=== PATIENT | female | born 1950 | race African-American/Black ===

== ENCOUNTER 2017-04-11 18:30 | Inpatient (IN) | payer MEDICARE ==
[~2017-04-11] VITALS: Ht 160 cm; Wt 81.2 kg
[~2017-04-11 18:30] MED LIST: AMLO5TAB4 PO; ASPI-1159 PO; ATOR20TA PO; CHOL100022 PO; CLOP75TA16 PO; DOCU250C69 PO; DULO60CA44 PO; FENO135C4 PO; FERR325T23 PO; FOLI-43 PO; HYDR100T26 PO; LABE100T PO; LANTANOPROST EACHEYE; LORA10TA7 PO; LYR25 PO; MIRT15TA6 PO; OMEP20CA10 PO; PHEN300C2 PO; SITA100T11 PO; VIC PO; WHEA98PO PO
[2017-04-11 20:43] LABS: BASOPHILS % 0.9 % (0.0-2.0); EOSINOPHILS % 2.9 % (0.0-5.0); MEAN CORPUSCULAR HEMOGLOBIN 26.3 pg (28.0-32.0); MEAN CORPUSCULAR VOLUME 81.2 fL (81.0-99.0); MONOCYTES % 12.1 % (2.0-8.0); NEUTROPHILS % 67.1 % (40.0-76.0); PLATELET 317 x1000/uL (130-400); RED BLOOD CELL COUNT 2.31 mill/uL (4.2-5.4); RED CELL DISTRIBUTION WIDTH 13.6 % (11.6-14.6)
[2017-04-11 20:45] LABS: HEMATOCRIT. 18.7 % (36.0-48.0); HEMOGLOBIN. 6.1 g/dL (12.0-16.0)
[2017-04-11 20:55] LABS: CARBON DIOXIDE 20 mEq/L (21-32); CHLORIDE 113 mEq/L (98-107)
[2017-04-11 22:59] LABS: INR 1.2; PROTHROMBIN TIME 12.6 sec (9.4-11.6)
[2017-04-12] VITALS (10 sets, daily range): BP systolic 129–172; BP diastolic 46–70
[2017-04-12] MEDS ORDERED: DEXTROSE 50% WATER 50ML SYRINGE IV PRN (04:45)
[2017-04-12] MEDS ORDERED: OMEPRAZOLE 20MG CAPSULE EXTENDED RELEASE PO SCH (07:20)
[2017-04-12] MEDS: BLOOD SUGAR DIAGNOSTIC STRIP TEST SCH ×4 (07:20→21:02)
[2017-04-12] MEDS: INSULIN LISPRO 100 UNITS/ML SUBCUT SCH ×4 (07:50→21:00)
[2017-04-12] MEDS ORDERED: OMEPRAZOLE 20MG CAPSULE EXTENDED RELEASE PO ONE (08:45)
[2017-04-12] MEDS ORDERED: AMLODIPINE 5MG TABLET PO SCH (09:00)
[2017-04-12] MEDS: FERROUS SULFATE 325MG TABLET PO SCH (09:45)
[2017-04-12] MEDS: LORATADINE 10MG TABLET PO SCH (09:45)
[2017-04-12] MEDS: MIRTAZAPINE 15MG TABLET PO SCH (09:45)
[2017-04-12] MEDS: DOCUSATE SODIUM 250MG CAPSULE PO SCH (09:45)
[2017-04-12] MEDS: DULOXETINE HCL 60MG DR CAPSULE PO SCH (09:45)
[2017-04-12] MEDS: FOLIC ACID 1MG TABLET PO SCH (09:45)
[2017-04-12] MEDS: FENOFIBRATE NANOCRYSTALLIZED 145MG TABLET PO SCH (09:45)
[2017-04-12] MEDS: AMLODIPINE 5MG TABLET PO SCH ×2 (09:47→21:02)
[2017-04-12] MEDS: CHOLECALCIFEROL (D3) 1000 UNIT TABLET PO SCH (09:47)
[2017-04-12] MEDS: HYDRALAZINE HCL 100MG TABLET PO SCH ×3 (11:01→21:02)
[2017-04-12] MEDS: PHENYTOIN SODIUM EXTENDED 100MG CAPSULE PO SCH ×2 (13:31→21:02)
[2017-04-12] MEDS: SODIUM CHLORIDE 0.45% 1,000 ML IV SCH ×2 (14:56→17:50)
[2017-04-12 16:51] LABS: BASOPHILS % 0.7 % (0.0-2.0); EOSINOPHILS % 3.1 % (0.0-5.0); HEMATOCRIT. 24.2 % (36.0-48.0); HEMOGLOBIN. 7.7 g/dL (12.0-16.0); LYMPHOCYTES % 15.5 % (20.0-50.0); MEAN CORPUSCULAR HEMOGLOBIN 26.8 pg (28.0-32.0); MEAN CORPUSCULAR VOLUME 83.9 fL (81.0-99.0); MONOCYTES % 11.3 % (2.0-8.0); NEUTROPHILS % 69.4 % (40.0-76.0); PLATELET 318 x1000/uL (130-400); RED BLOOD CELL COUNT 2.89 mill/uL (4.2-5.4)
[2017-04-12] MEDS: ATORVASTATIN CALCIUM 20MG TABLET PO SCH (21:02)
[2017-04-13] VITALS (31 sets, daily range): BP systolic 63–227; BP diastolic 24–95
[2017-04-13] MEDS: SODIUM CHLORIDE 0.45% 1,000 ML IV SCH (00:36)
[2017-04-13 02:36] LABS: CLARITY URINE CLEAR (CLEAR); COLOR URINE YELLOW (YELLOW); KETONES URINE NEGATIVE (NEGATIVE); LEUKOCYTE ESTERASE URINE NEGATIVE (NEGATIVE); NITRITE URINE NEGATIVE (NEGATIVE); OCCULT BLOOD URINE NEGATIVE (NEGATIVE); PROTEIN URINE 1+ (NEGATIVE); SPECIFIC GRAVITY URINE 1.013 (1.005-1.030); UROBILINOGEN URINE 0.2 E.U./dL (0.2-1.0)
[2017-04-13] MEDS: PHENYTOIN SODIUM EXTENDED 100MG CAPSULE PO SCH ×3 (05:04→21:41)
[2017-04-13] MEDS: HYDRALAZINE HCL 100MG TABLET PO SCH ×3 (05:05→21:32)
[2017-04-13] MEDS: BLOOD SUGAR DIAGNOSTIC STRIP TEST SCH ×3 (06:28→17:50)
[2017-04-13] MEDS ORDERED: OMEPRAZOLE 20MG CAPSULE EXTENDED RELEASE PO SCH (07:20)
[2017-04-13 07:42] LABS: BASOPHILS % 0.5 % (0.0-2.0); EOSINOPHILS % 2.3 % (0.0-5.0); HEMATOCRIT. 22.4 % (36.0-48.0); HEMOGLOBIN. 7.4 g/dL (12.0-16.0); LYMPHOCYTES % 12.6 % (20.0-50.0); MEAN CORPUSCULAR HEMOGLOBIN 26.8 pg (28.0-32.0); MEAN CORPUSCULAR VOLUME 81.2 fL (81.0-99.0); MEAN PLATELET VOLUME 9.1 fl (7.4-10.4); MONOCYTES % 10.1 % (2.0-8.0); NEUTROPHILS % 74.5 % (40.0-76.0); PLATELET 341 x1000/uL (130-400); RED BLOOD CELL COUNT 2.76 mill/uL (4.2-5.4); RED CELL DISTRIBUTION WIDTH 13.9 % (11.6-14.6)
[2017-04-13] MEDS: INSULIN LISPRO 100 UNITS/ML SUBCUT SCH ×4 (07:50→23:23)
[2017-04-13] MEDS: FERROUS SULFATE 325MG TABLET PO SCH (08:51)
[2017-04-13] MEDS: CHOLECALCIFEROL (D3) 1000 UNIT TABLET PO SCH (08:52)
[2017-04-13] MEDS: FOLIC ACID 1MG TABLET PO SCH (08:52)
[2017-04-13] MEDS: DOCUSATE SODIUM 250MG CAPSULE PO SCH (08:52)
[2017-04-13] MEDS: AMLODIPINE 5MG TABLET PO SCH ×2 (08:52→21:32)
[2017-04-13] MEDS: FENOFIBRATE NANOCRYSTALLIZED 145MG TABLET PO SCH (08:53)
[2017-04-13] MEDS: DULOXETINE HCL 60MG DR CAPSULE PO SCH (08:53)
[2017-04-13] MEDS: LORATADINE 10MG TABLET PO SCH (08:53)
[2017-04-13] MEDS: MIRTAZAPINE 15MG TABLET PO SCH (08:56)
[2017-04-13] MEDS ORDERED: NA PHOS,M-B/NA PHOS,DI-BA ENEMA 118ML PR SCH (10:45)
[2017-04-13] MEDS ORDERED: SORBITOL 70% SOLN 30ML PO SCH (10:45)
[2017-04-13] MEDS: PHENYTOIN SODIUM 1,000 MG in SODIUM CHLORIDE 0.9% 100 ML IV SCH ×3 (11:00→13:05)
[2017-04-13 14:50] LABS: CLARITY URINE CLEAR (CLEAR); COLOR URINE YELLOW (YELLOW); KETONES URINE NEGATIVE (NEGATIVE); LEUKOCYTE ESTERASE URINE NEGATIVE (NEGATIVE); NITRITE URINE NEGATIVE (NEGATIVE); OCCULT BLOOD URINE 2+ (NEGATIVE); PROTEIN URINE 1+ (NEGATIVE); SPECIFIC GRAVITY URINE 1.014 (1.005-1.030); UROBILINOGEN URINE 0.2 E.U./dL (0.2-1.0)
[2017-04-13] MEDS ORDERED: SUCCINYLCHOLINE CHLORIDE 200MG/10ML VIAL IV ONE (16:00)
[2017-04-13] MEDS ORDERED: FUROSEMIDE 40MG/4ML VIAL IVP NR (16:00)
[2017-04-13] MEDS ORDERED: ETOMIDATE 2MG/ML 10ML VIAL IV ONE (16:00)
[2017-04-13] MEDS ORDERED: LABETALOL 5MG/ML SYR 20 MG/4 ML SYRINGE IV NR (16:45)
[2017-04-13 17:03] LABS: BG BASE EXCESS -12.5 mmol/L (-2.0-2.0); BG CARBOXYHEMOGLOBIN 0.2 % (0.5-1.5); BG DEOXYHEMOGLOBIN 0.5 % (0.0-5.0); BG HCO3 ACT 16.3 mmol/L (22.0-26.0); BG METHEMOGLOBIN 0.6 % (0.0-1.5); BG OXYGEN SATURATION 99.5 % (92.0-98.5); BG OXYHEMOGLOBIN 98.7 % (94.0-97.0); BG PCO2 49.5 mmHg (35.0-45.0); BG PH 7.136 (7.350-7.450); BG PO2 396.4 mmHg (75.0-100.0); BG SAMPLE SITE RIGHT RADIAL; BG TIDAL VOLUME(mL) 500 mL; BG TOTAL HEMOGLOBIN 11.7 g/dL (12.0-18.0); BG VENT MODE VENT - A/C; BG VENT RATE 16 set
[2017-04-13] MEDS: PROPOFOL 10MG/ML 100ML 100 ML IV PRN ×2 (17:11→21:30)
[2017-04-13 20:18] LABS: HEMATOCRIT. 24.8 % (36.0-48.0); HEMOGLOBIN. 7.9 g/dL (12.0-16.0); MEAN CORPUSCULAR HEMOGLOBIN 26.6 pg (28.0-32.0); MEAN CORPUSCULAR VOLUME 83.1 fL (81.0-99.0); MEAN PLATELET VOLUME 8.6 fl (7.4-10.4); PLATELET 363 x1000/uL (130-400); RED BLOOD CELL COUNT 2.98 mill/uL (4.2-5.4); RED CELL DISTRIBUTION WIDTH 13.9 % (11.6-14.6)
[2017-04-13 20:51] LABS: ATYPICAL LYMPHOCYTES 1; PLATELET ESTIMATE NORMAL
[2017-04-13 20:53] LABS: TROPONIN I 0.47 ng/mL (0.00-0.04)
[2017-04-13 21:05] LABS: BG BASE EXCESS -9.9 mmol/L (-2.0-2.0); BG CARBOXYHEMOGLOBIN 0.2 % (0.5-1.5); BG DEOXYHEMOGLOBIN 12.2 % (0.0-5.0); BG FRACTION INSPIRED OXYGEN 65; BG HCO3 ACT 16.2 mmol/L (22.0-26.0); BG METHEMOGLOBIN 0.5 % (0.0-1.5); BG OXYGEN SATURATION 87.7 % (92.0-98.5); BG OXYHEMOGLOBIN 87.1 % (94.0-97.0); BG PCO2 36.2 mmHg (35.0-45.0); BG PH 7.269 (7.350-7.450); BG PO2 60.3 mmHg (75.0-100.0); BG SAMPLE SITE RIGHT BRACHIAL; BG TIDAL VOLUME(mL) 500 mL; BG TOTAL HEMOGLOBIN 8.8 g/dL (12.0-18.0); BG VENT MODE VENT - A/C; BG VENT RATE 22 set
[2017-04-13] MEDS: ATORVASTATIN CALCIUM 20MG TABLET PO SCH (21:32)
[2017-04-13] MEDS ORDERED: SODIUM BICARBONATE 8.4% 1 MEQ/ML 50ML SYR IV NR (22:45)
[2017-04-14] VITALS (86 sets, daily range): BP systolic 118–196; BP diastolic 51–106
[2017-04-14 00:50] LABS: BG BASE EXCESS -5.6 mmol/L (-2.0-2.0); BG CARBOXYHEMOGLOBIN 0.1 % (0.5-1.5); BG FRACTION INSPIRED OXYGEN 75; BG HCO3 ACT 18.5 mmol/L (22.0-26.0); BG METHEMOGLOBIN 0.3 % (0.0-1.5); BG OXYHEMOGLOBIN 98.6 % (94.0-97.0); BG PCO2 31.5 mmHg (35.0-45.0); BG PH 7.387 (7.350-7.450); BG PO2 172.3 mmHg (75.0-100.0); BG SAMPLE SITE LEFT BRACHIAL; BG TIDAL VOLUME(mL) 550 mL; BG TOTAL HEMOGLOBIN 10.9 g/dL (12.0-18.0); BG VENT MODE VENT - A/C; BG VENT RATE 24 set
[2017-04-14] MEDS: PROPOFOL 10MG/ML 100ML 100 ML IV PRN ×8 (02:13→23:15)
[2017-04-14 04:13] LABS: HEMATOCRIT. 23.7 % (36.0-48.0); HEMOGLOBIN. 7.7 g/dL (12.0-16.0); MEAN CORPUSCULAR HEMOGLOBIN 26.2 pg (28.0-32.0); MEAN CORPUSCULAR VOLUME 80.3 fL (81.0-99.0); MEAN PLATELET VOLUME 8.7 fl (7.4-10.4); PLATELET 319 x1000/uL (130-400); RED BLOOD CELL COUNT 2.95 mill/uL (4.2-5.4); RED CELL DISTRIBUTION WIDTH 13.6 % (11.6-14.6)
[2017-04-14] MEDS: PHENYTOIN SODIUM EXTENDED 100MG CAPSULE PO SCH ×3 (05:39→22:06)
[2017-04-14 05:40] LABS: TROPONIN I 0.75 ng/mL (0.00-0.04)
[2017-04-14] MEDS: NICARDIPINE 100 MG in SODIUM CHLORIDE 0.9% 60 ML IV PRN ×2 (05:42→17:32)
[2017-04-14] MEDS: HYDRALAZINE HCL 100MG TABLET PO SCH (06:00)
[2017-04-14] MEDS: INSULIN LISPRO 100 UNITS/ML SUBCUT SCH ×3 (06:00→18:00)
[2017-04-14] MEDS: BLOOD SUGAR DIAGNOSTIC STRIP TEST SCH ×4 (06:05→18:00)
[2017-04-14] MEDS ORDERED: SODIUM BICARBONATE 4% (2.4MEQ) 5ML VIAL IV ONE (08:00)
[2017-04-14] MEDS ORDERED: LIDOCAINE HCL 1% 20ML VIAL (Pyxis) INJ ONE (08:00)
[2017-04-14] MEDS ORDERED: FUROSEMIDE 40MG/4ML VIAL IVP SCH (08:30)
[2017-04-14 08:34] LABS: BG BASE EXCESS -7.5 mmol/L (-2.0-2.0); BG CARBOXYHEMOGLOBIN 0.1 % (0.5-1.5); BG DEOXYHEMOGLOBIN 0.9 % (0.0-5.0); BG FRACTION INSPIRED OXYGEN 75; BG HCO3 ACT 16.2 mmol/L (22.0-26.0); BG METHEMOGLOBIN 0.7 % (0.0-1.5); BG OXYGEN SATURATION 99.1 % (92.0-98.5); BG OXYHEMOGLOBIN 98.3 % (94.0-97.0); BG PCO2 26.1 mmHg (35.0-45.0); BG PO2 177.5 mmHg (75.0-100.0); BG SAMPLE SITE RIGHT RADIAL; BG TIDAL VOLUME(mL) 550 mL; BG TOTAL HEMOGLOBIN 7.7 g/dL (12.0-18.0); BG VENT MODE VENT - A/C; BG VENT RATE 24 set
[2017-04-14] MEDS ORDERED: VANCOMYCIN 1 G PREMIX 200 ML IV SCH (09:00)
[2017-04-14] MEDS: PIPERACILLIN/TAZ 3.375G PREMIX 50 ML IV SCH ×2 (09:32→16:53)
[2017-04-14 10:10] LABS: PLATELET ESTIMATE NORMAL
[2017-04-14] MEDS: ACETAMINOPHEN 325MG TABLET PO PRN (10:22)
[2017-04-14] MEDS: FOLIC ACID 1MG TABLET PO SCH (10:23)
[2017-04-14] MEDS: FERROUS SULFATE 325MG TABLET PO SCH (10:23)
[2017-04-14] MEDS: AMLODIPINE 5MG TABLET PO SCH ×2 (10:23→22:02)
[2017-04-14] MEDS: DOCUSATE SODIUM 250MG CAPSULE PO SCH (10:23)
[2017-04-14] MEDS: LORATADINE 10MG TABLET PO SCH (10:23)
[2017-04-14] MEDS: MIRTAZAPINE 15MG TABLET PO SCH (10:24)
[2017-04-14] MEDS: DULOXETINE HCL 60MG DR CAPSULE PO SCH (10:24)
[2017-04-14] MEDS: FENOFIBRATE NANOCRYSTALLIZED 145MG TABLET PO SCH (10:24)
[2017-04-14] MEDS: CHOLECALCIFEROL (D3) 1000 UNIT TABLET PO SCH (10:24)
[2017-04-14] MEDS: FAMOTIDINE 20MG/2ML VIAL IV SCH (11:11)
[2017-04-14] MEDS: NITROGLYCERIN OINT 1GM/INCH UDPKT TD SCH ×2 (11:58→22:08)
[2017-04-14] MEDS ORDERED: VANCOMYCIN 500 MG PREMIX 100 ML IV SCH (13:00)
[2017-04-14] MEDS: IPRATROPIUM/ALBUTEROL 0.5-3(2.5)MG/3ML NEB HHN PRN ×2 (13:16→16:44)
[2017-04-14] MEDS: HYDRALAZINE HCL 50MG TABLET GT SCH (14:23)
[2017-04-14] MEDS: LABETALOL HCL 200MG TABLET NG SCH (22:01)
[2017-04-14] MEDS: ATORVASTATIN CALCIUM 20MG TABLET PO SCH (22:02)
[2017-04-15] VITALS (79 sets, daily range): BP systolic 121–170; BP diastolic 47–108
[2017-04-15] MEDS: HYDRALAZINE HCL 50MG TABLET GT SCH ×4 (00:01→22:38)
[2017-04-15] MEDS: PIPERACILLIN/TAZ 3.375G PREMIX 50 ML IV SCH ×3 (01:47→17:44)
[2017-04-15] MEDS: NICARDIPINE 100 MG in SODIUM CHLORIDE 0.9% 60 ML IV PRN (01:54)
[2017-04-15] MEDS: PROPOFOL 10MG/ML 100ML 100 ML IV PRN ×2 (03:34→07:06)
[2017-04-15] MEDS: INSULIN LISPRO 100 UNITS/ML SUBCUT SCH ×2 (06:00)
[2017-04-15 06:03] LABS: HEMOGLOBIN. 7.8 g/dL (12.0-16.0); MEAN CORPUSCULAR HEMOGLOBIN 27.1 pg (28.0-32.0); MEAN CORPUSCULAR VOLUME 82.9 fL (81.0-99.0); PLATELET 249 x1000/uL (130-400); RED CELL DISTRIBUTION WIDTH 14.4 % (11.6-14.6)
[2017-04-15] MEDS: PHENYTOIN SODIUM EXTENDED 100MG CAPSULE PO SCH ×3 (06:18→22:38)
[2017-04-15] MEDS: NITROGLYCERIN OINT 1GM/INCH UDPKT TD SCH ×3 (06:50→22:39)
[2017-04-15 07:22] LABS: BG BASE EXCESS -7.4 mmol/L (-2.0-2.0); BG CARBOXYHEMOGLOBIN 0.3 % (0.5-1.5); BG DEOXYHEMOGLOBIN 2.2 % (0.0-5.0); BG HCO3 ACT 17.5 mmol/L (22.0-26.0); BG METHEMOGLOBIN 0.4 % (0.0-1.5); BG OXYGEN SATURATION 97.8 % (92.0-98.5); BG OXYHEMOGLOBIN 97.1 % (94.0-97.0); BG PCO2 32.8 mmHg (35.0-45.0); BG PH 7.346 (7.350-7.450); BG PO2 114.9 mmHg (75.0-100.0); BG SAMPLE SITE RIGHT BRACHIAL; BG TIDAL VOLUME(mL) 550 mL; BG TOTAL HEMOGLOBIN 8.3 g/dL (12.0-18.0); BG VENT MODE VENT - A/C; BG VENT RATE 20 set
[2017-04-15 09:00] LABS: TROPONIN I 0.24 ng/mL (0.00-0.04)
[2017-04-15] MEDS ORDERED: CLOPIDOGREL 75MG TABLET NG SCH (09:00)
[2017-04-15] MEDS: IPRATROPIUM/ALBUTEROL 0.5-3(2.5)MG/3ML NEB HHN PRN (09:16)
[2017-04-15] MEDS: DOCUSATE SODIUM 250MG CAPSULE PO SCH (10:03)
[2017-04-15] MEDS: FAMOTIDINE 20MG/2ML VIAL IV SCH (10:03)
[2017-04-15] MEDS: FENOFIBRATE NANOCRYSTALLIZED 145MG TABLET PO SCH (10:04)
[2017-04-15] MEDS: MIRTAZAPINE 15MG TABLET PO SCH (10:04)
[2017-04-15] MEDS: LABETALOL HCL 200MG TABLET NG SCH ×2 (10:04→20:57)
[2017-04-15] MEDS: DULOXETINE HCL 60MG DR CAPSULE PO SCH (10:05)
[2017-04-15] MEDS: LORATADINE 10MG TABLET PO SCH (10:05)
[2017-04-15] MEDS: CHOLECALCIFEROL (D3) 1000 UNIT TABLET PO SCH (10:05)
[2017-04-15] MEDS: FOLIC ACID 1MG TABLET PO SCH (10:05)
[2017-04-15] MEDS: AMLODIPINE 5MG TABLET PO SCH ×2 (10:05→20:58)
[2017-04-15] MEDS: FERROUS SULFATE 325MG TABLET PO SCH (10:05)
[2017-04-15] MEDS ORDERED: VANCOMYCIN 1 G PREMIX 200 ML IV SCH (12:00)
[2017-04-15] MEDS: BLOOD SUGAR DIAGNOSTIC STRIP TEST SCH ×4 (12:41→23:57)
[2017-04-15] MEDS: FENTANYL CITRATE/PF 500 MCG in SODIUM CHLORIDE 0.9% 40 ML IV PRN (13:28)
[2017-04-15] MEDS: MIDAZOLAM HCL 50 MG in DEXTROSE 5% WATER 40 ML IV PRN ×2 (13:30→21:51)
[2017-04-15 13:53] LABS: PLATELET ESTIMATE NORMAL
[2017-04-15 19:12] LABS: ANTI-NUCLEAR ANTIBODIES DIRECT Positive (Negative)
[2017-04-15] MEDS: ATORVASTATIN CALCIUM 20MG TABLET PO SCH (20:57)
[2017-04-15] MEDS: ACETAMINOPHEN 325MG TABLET PO PRN (20:58)
[2017-04-16] VITALS (97 sets, daily range): BP systolic 123–192; BP diastolic 53–131
[2017-04-16] MEDS: PIPERACILLIN/TAZ 3.375G PREMIX 50 ML IV SCH ×3 (01:30→16:36)
[2017-04-16] MEDS: FENTANYL CITRATE/PF 500 MCG in SODIUM CHLORIDE 0.9% 40 ML IV PRN ×2 (01:36→18:29)
[2017-04-16] MEDS: NICARDIPINE 100 MG in SODIUM CHLORIDE 0.9% 60 ML IV PRN (02:13)
[2017-04-16] MEDS: MIDAZOLAM HCL 50 MG in DEXTROSE 5% WATER 40 ML IV PRN ×4 (03:11→23:31)
[2017-04-16 05:39] LABS: HEMOGLOBIN. 7.9 g/dL (12.0-16.0); MEAN CORPUSCULAR HEMOGLOBIN 27.2 pg (28.0-32.0); MEAN CORPUSCULAR VOLUME 82.6 fL (81.0-99.0); MEAN PLATELET VOLUME 9.2 fl (7.4-10.4); PLATELET 224 x1000/uL (130-400); RED BLOOD CELL COUNT 2.91 mill/uL (4.2-5.4); RED CELL DISTRIBUTION WIDTH 14.4 % (11.6-14.6)
[2017-04-16 06:21] LABS: COMPLEMENT C3 56 mg/dL (82-167)
[2017-04-16] MEDS: PHENYTOIN SODIUM EXTENDED 100MG CAPSULE PO SCH (06:27)
[2017-04-16] MEDS: BLOOD SUGAR DIAGNOSTIC STRIP TEST SCH ×3 (06:28→17:41)
[2017-04-16] MEDS: NITROGLYCERIN OINT 1GM/INCH UDPKT TD SCH ×3 (06:28→23:05)
[2017-04-16] MEDS: HYDRALAZINE HCL 50MG TABLET GT SCH (06:28)
[2017-04-16] MEDS: FOLIC ACID 1MG TABLET PO SCH (08:52)
[2017-04-16] MEDS: FAMOTIDINE 20MG/2ML VIAL IV SCH (08:52)
[2017-04-16] MEDS: MIRTAZAPINE 15MG TABLET PO SCH (08:52)
[2017-04-16] MEDS: FENOFIBRATE NANOCRYSTALLIZED 145MG TABLET PO SCH (08:52)
[2017-04-16] MEDS: FERROUS SULFATE 325MG TABLET PO SCH (08:53)
[2017-04-16] MEDS: AMLODIPINE 5MG TABLET PO SCH ×2 (08:53→20:31)
[2017-04-16] MEDS: LORATADINE 10MG TABLET PO SCH (08:53)
[2017-04-16] MEDS: DULOXETINE HCL 60MG DR CAPSULE PO SCH (08:53)
[2017-04-16] MEDS: LABETALOL HCL 200MG TABLET NG SCH ×2 (08:53→20:31)
[2017-04-16] MEDS: CHOLECALCIFEROL (D3) 1000 UNIT TABLET PO SCH (08:53)
[2017-04-16 08:57] LABS: BG BASE EXCESS -8.6 mmol/L (-2.0-2.0); BG CARBOXYHEMOGLOBIN 0.1 % (0.5-1.5); BG DEOXYHEMOGLOBIN 1.7 % (0.0-5.0); BG FRACTION INSPIRED OXYGEN 50; BG HCO3 ACT 16.8 mmol/L (22.0-26.0); BG METHEMOGLOBIN 0.2 % (0.0-1.5); BG OXYGEN SATURATION 98.3 % (92.0-98.5); BG PCO2 33.9 mmHg (35.0-45.0); BG PH 7.313 (7.350-7.450); BG SAMPLE SITE RIGHT RADIAL; BG TIDAL VOLUME(mL) 550 mL; BG TOTAL HEMOGLOBIN 8.1 g/dL (12.0-18.0); BG VENT MODE VENT - A/C; BG VENT RATE 20 set
[2017-04-16] MEDS: DOCUSATE SODIUM 250MG CAPSULE PO SCH (09:00)
[2017-04-16] MEDS ORDERED: FUROSEMIDE 40MG/4ML VIAL IVP NR (09:30)
[2017-04-16] MEDS ORDERED: BISACODYL 10MG SUPP PR PRN (09:30)
[2017-04-16 10:33] LABS: PLATELET ESTIMATE NORMAL
[2017-04-16] MEDS: INSULIN LISPRO 100 UNITS/ML SUBCUT SCH ×2 (12:00→17:41)
[2017-04-16] MEDS: ACETAMINOPHEN 325MG TABLET PO PRN (12:54)
[2017-04-16] MEDS: HYDRALAZINE HCL 100MG TABLET GT SCH ×2 (14:04→23:05)
[2017-04-16] MEDS: PHENYTOIN 100 MG/4 ML UDC NG SCH ×2 (14:04→23:05)
[2017-04-16] MEDS ORDERED: NICARDIPINE 50 MG in SODIUM CHLORIDE 0.9% 230 ML IV SCH (16:00)
[2017-04-16] MEDS: ACETYLCYSTEINE 200MG/ML 20% VIAL 4ML INH SCH (16:32)
[2017-04-16] MEDS: IPRATROPIUM/ALBUTEROL 0.5-3(2.5)MG/3ML NEB HHN PRN ×2 (16:33→20:29)
[2017-04-16] MEDS: DEXT 5% IV SCH (16:34)
[2017-04-16] MEDS: NICARDIPINE IV SCH (16:34)
[2017-04-16] MEDS: WATER IV SCH (16:34)
[2017-04-16] MEDS: ATORVASTATIN CALCIUM 20MG TABLET PO SCH (20:31)
[2017-04-17] VITALS (93 sets, daily range): BP systolic 108–169; BP diastolic 40–86
[2017-04-17] MEDS: INSULIN LISPRO 100 UNITS/ML SUBCUT SCH ×4 (00:30→17:30)
[2017-04-17] MEDS: BLOOD SUGAR DIAGNOSTIC STRIP TEST SCH ×4 (00:30→17:30)
[2017-04-17] MEDS: IPRATROPIUM/ALBUTEROL 0.5-3(2.5)MG/3ML NEB HHN PRN ×5 (00:31→15:27)
[2017-04-17] MEDS: ACETYLCYSTEINE 200MG/ML 20% VIAL 4ML INH SCH ×3 (00:32→15:27)
[2017-04-17] MEDS: PIPERACILLIN/TAZ 3.375G PREMIX 50 ML IV SCH ×3 (01:56→17:30)
[2017-04-17] MEDS: FENTANYL CITRATE/PF 500 MCG in SODIUM CHLORIDE 0.9% 40 ML IV PRN (05:39)
[2017-04-17] MEDS: MIDAZOLAM HCL 50 MG in DEXTROSE 5% WATER 40 ML IV PRN (05:39)
[2017-04-17] MEDS: DEXT 5% IV SCH (05:40)
[2017-04-17] MEDS: WATER IV SCH (05:40)
[2017-04-17] MEDS: NICARDIPINE IV SCH (05:40)
[2017-04-17] MEDS: PHENYTOIN 100 MG/4 ML UDC NG SCH ×3 (05:41→21:40)
[2017-04-17] MEDS: NITROGLYCERIN OINT 1GM/INCH UDPKT TD SCH ×3 (05:42→21:40)
[2017-04-17] MEDS: HYDRALAZINE HCL 100MG TABLET GT SCH ×3 (05:42→21:40)
[2017-04-17 05:47] LABS: HEMOGLOBIN. 7.9 g/dL (12.0-16.0); MEAN CORPUSCULAR VOLUME 82.4 fL (81.0-99.0); MEAN PLATELET VOLUME 9.5 fl (7.4-10.4); PLATELET 239 x1000/uL (130-400); RED BLOOD CELL COUNT 2.91 mill/uL (4.2-5.4); RED CELL DISTRIBUTION WIDTH 14.1 % (11.6-14.6)
[2017-04-17] MEDS ORDERED: VANCOMYCIN 1 G PREMIX 200 ML IV PRN (06:00)
[2017-04-17 06:08] LABS: PHOSPHORUS 3.9 mg/dL (2.5-4.9)
[2017-04-17 08:28] LABS: BG BASE EXCESS -6.9 mmol/L (-2.0-2.0); BG CARBOXYHEMOGLOBIN 0.3 % (0.5-1.5); BG DEOXYHEMOGLOBIN 1.3 % (0.0-5.0); BG FRACTION INSPIRED OXYGEN 50; BG HCO3 ACT 18.4 mmol/L (22.0-26.0); BG METHEMOGLOBIN 0.7 % (0.0-1.5); BG OXYGEN SATURATION 98.7 % (92.0-98.5); BG OXYHEMOGLOBIN 97.7 % (94.0-97.0); BG PCO2 35.8 mmHg (35.0-45.0); BG PH 7.329 (7.350-7.450); BG PO2 156.6 mmHg (75.0-100.0); BG SAMPLE SITE RIGHT RADIAL; BG TIDAL VOLUME(mL) 550 mL; BG TOTAL HEMOGLOBIN 9.4 g/dL (12.0-18.0); BG VENT MODE VENT - A/C; BG VENT RATE 20 set
[2017-04-17] MEDS ORDERED: MIDAZOLAM HCL 2 MG/2 ML VIAL IV PRN (09:30)
[2017-04-17] MEDS: CHOLECALCIFEROL (D3) 1000 UNIT TABLET PO SCH (09:41)
[2017-04-17] MEDS: DULOXETINE HCL 60MG DR CAPSULE PO SCH (09:41)
[2017-04-17] MEDS: FERROUS SULFATE 325MG TABLET PO SCH (09:41)
[2017-04-17] MEDS: DOCUSATE SODIUM 250MG CAPSULE PO SCH (09:41)
[2017-04-17] MEDS: FAMOTIDINE 20MG/2ML VIAL IV SCH (09:42)
[2017-04-17] MEDS: AMLODIPINE 5MG TABLET PO SCH ×2 (09:42→20:50)
[2017-04-17] MEDS: MIRTAZAPINE 15MG TABLET PO SCH (09:42)
[2017-04-17] MEDS: FENOFIBRATE NANOCRYSTALLIZED 145MG TABLET PO SCH (09:42)
[2017-04-17] MEDS: LABETALOL HCL 200MG TABLET NG SCH ×2 (09:42→20:49)
[2017-04-17] MEDS: FOLIC ACID 1MG TABLET PO SCH (09:42)
[2017-04-17] MEDS: LORATADINE 10MG TABLET PO SCH (09:43)
[2017-04-17] MEDS ORDERED: POTASSIUM CHLORIDE 20MEQ/PACKET PO NR (11:00)
[2017-04-17] MEDS ORDERED: MAGNESIUM 1 G PREMIX 100 ML IV NR (11:00)
[2017-04-17] MEDS: CITRIC ACID/SODIUM CITRATE SOLN 15ML UDC NG SCH ×2 (11:29→17:30)
[2017-04-17] MEDS: ACETAMINOPHEN 325MG TABLET PO PRN (11:43)
[2017-04-17 12:16] LABS: BG BASE EXCESS -5.2 mmol/L (-2.0-2.0); BG CARBOXYHEMOGLOBIN 0.4 % (0.5-1.5); BG DEOXYHEMOGLOBIN 1.7 % (0.0-5.0); BG FRACTION INSPIRED OXYGEN 40; BG HCO3 ACT 20.1 mmol/L (22.0-26.0); BG METHEMOGLOBIN 0.8 % (0.0-1.5); BG OXYGEN SATURATION 98.3 % (92.0-98.5); BG OXYHEMOGLOBIN 97.1 % (94.0-97.0); BG PCO2 37.8 mmHg (35.0-45.0); BG PH 7.343 (7.350-7.450); BG PO2 141.3 mmHg (75.0-100.0); BG SAMPLE SITE RIGHT RADIAL; BG TIDAL VOLUME(mL) 550 mL; BG TOTAL HEMOGLOBIN 7.7 g/dL (12.0-18.0); BG VENT MODE VENT - A/C; BG VENT RATE 16 set
[2017-04-17] MEDS ORDERED: VANCOMYCIN 1 G PREMIX 200 ML IV SCH (14:00)
[2017-04-17 14:11] LABS: PLATELET ESTIMATE NORMAL
[2017-04-17] MEDS ORDERED: FUROSEMIDE 40MG/4ML VIAL IVP NR (15:00)
[2017-04-17] MEDS: ATORVASTATIN CALCIUM 20MG TABLET PO SCH (20:50)
[2017-04-18] VITALS (97 sets, daily range): BP systolic 121–213; BP diastolic 32–146
[2017-04-18] MEDS: BLOOD SUGAR DIAGNOSTIC STRIP TEST SCH ×4 (00:23→17:39)
[2017-04-18] MEDS: ACETYLCYSTEINE 200MG/ML 20% VIAL 4ML INH SCH ×3 (00:36→15:50)
[2017-04-18] MEDS: IPRATROPIUM/ALBUTEROL 0.5-3(2.5)MG/3ML NEB HHN PRN ×3 (00:37→15:50)
[2017-04-18] MEDS: WATER IV SCH ×3 (00:59→15:38)
[2017-04-18] MEDS: PIPERACILLIN/TAZ 3.375G PREMIX 50 ML IV SCH ×3 (00:59→17:29)
[2017-04-18] MEDS: DEXT 5% IV SCH ×3 (00:59→15:38)
[2017-04-18] MEDS: NICARDIPINE IV SCH ×3 (00:59→15:38)
[2017-04-18 05:29] LABS: HEMATOCRIT. 24.6 % (36.0-48.0); HEMOGLOBIN. 8.2 g/dL (12.0-16.0); MEAN CORPUSCULAR HEMOGLOBIN 27.6 pg (28.0-32.0); MEAN CORPUSCULAR VOLUME 82.4 fL (81.0-99.0); MEAN PLATELET VOLUME 9.3 fl (7.4-10.4); PLATELET 217 x1000/uL (130-400); RED BLOOD CELL COUNT 2.98 mill/uL (4.2-5.4); RED CELL DISTRIBUTION WIDTH 14.4 % (11.6-14.6)
[2017-04-18] MEDS: HYDRALAZINE HCL 100MG TABLET GT SCH ×3 (05:55→22:29)
[2017-04-18] MEDS: NITROGLYCERIN OINT 1GM/INCH UDPKT TD SCH ×3 (05:55→22:31)
[2017-04-18] MEDS: PHENYTOIN 100 MG/4 ML UDC NG SCH ×3 (05:55→22:29)
[2017-04-18 05:56] LABS: PHOSPHORUS 2.7 mg/dL (2.5-4.9)
[2017-04-18] MEDS: INSULIN LISPRO 100 UNITS/ML SUBCUT SCH ×4 (06:00→17:38)
[2017-04-18 08:10] LABS: BG BASE EXCESS -3.5 mmol/L (-2.0-2.0); BG CARBOXYHEMOGLOBIN 0.3 % (0.5-1.5); BG DEOXYHEMOGLOBIN 6.4 % (0.0-5.0); BG METHEMOGLOBIN 0.1 % (0.0-1.5); BG OXYGEN SATURATION 93.6 % (92.0-98.5); BG OXYHEMOGLOBIN 93.2 % (94.0-97.0); BG PCO2 41.8 mmHg (35.0-45.0); BG PO2 72.5 mmHg (75.0-100.0); BG SAMPLE SITE RIGHT RADIAL; BG TIDAL VOLUME(mL) 550 mL; BG TOTAL HEMOGLOBIN 8.9 g/dL (12.0-18.0); BG VENT MODE VENT - A/C; BG VENT RATE 14 set
[2017-04-18] MEDS: FAMOTIDINE 20MG/2ML VIAL IV SCH (08:43)
[2017-04-18] MEDS: FOLIC ACID 1MG TABLET PO SCH (08:44)
[2017-04-18] MEDS: MIRTAZAPINE 15MG TABLET PO SCH (08:44)
[2017-04-18] MEDS: LORATADINE 10MG TABLET PO SCH (08:44)
[2017-04-18] MEDS: FERROUS SULFATE 325MG TABLET PO SCH (08:44)
[2017-04-18] MEDS: DULOXETINE HCL 60MG DR CAPSULE PO SCH (08:44)
[2017-04-18] MEDS: AMLODIPINE 5MG TABLET PO SCH ×2 (08:44→21:10)
[2017-04-18] MEDS: FENOFIBRATE NANOCRYSTALLIZED 145MG TABLET PO SCH (08:44)
[2017-04-18] MEDS: CHOLECALCIFEROL (D3) 1000 UNIT TABLET PO SCH (08:44)
[2017-04-18] MEDS: LABETALOL HCL 200MG TABLET NG SCH ×3 (08:45→22:28)
[2017-04-18] MEDS: DOCUSATE SODIUM 250MG CAPSULE PO SCH (08:45)
[2017-04-18] MEDS: CITRIC ACID/SODIUM CITRATE SOLN 15ML UDC NG SCH ×3 (08:51→17:34)
[2017-04-18] MEDS: LACTOBACILLUS GG CAPSULE PO SCH (10:18)
[2017-04-18 10:45] LABS: PLATELET ESTIMATE NORMAL
[2017-04-18] MEDS: METOCLOPRAMIDE HCL 10MG/2ML VIAL IV SCH ×2 (11:33→17:34)
[2017-04-18] MEDS: DILTIAZEM HCL 30MG TABLET NG SCH ×2 (11:33→17:34)
[2017-04-18] MEDS: CAFFEINE 200MG TABLET NG SCH (11:33)
[2017-04-18] MEDS ORDERED: POTASSIUM CHLORIDE INJ 20 MEQ in DEXT 5% WATER 100 ML IV NR (12:00)
[2017-04-18] MEDS: FUROSEMIDE 40MG/4ML VIAL IVP SCH (17:34)
[2017-04-18] MEDS: ATORVASTATIN CALCIUM 20MG TABLET PO SCH (21:09)
[2017-04-19] VITALS (85 sets, daily range): BP systolic 101–191; BP diastolic 45–109
[2017-04-19] MEDS: METOCLOPRAMIDE HCL 10MG/2ML VIAL IV SCH ×4 (00:01→17:01)
[2017-04-19] MEDS: DILTIAZEM HCL 30MG TABLET NG SCH ×2 (00:01→05:34)
[2017-04-19] MEDS: IPRATROPIUM/ALBUTEROL 0.5-3(2.5)MG/3ML NEB HHN PRN ×4 (00:28→15:43)
[2017-04-19] MEDS: ACETYLCYSTEINE 200MG/ML 20% VIAL 4ML INH SCH ×3 (00:29→15:44)
[2017-04-19] MEDS: PIPERACILLIN/TAZ 3.375G PREMIX 50 ML IV SCH ×3 (02:17→18:04)
[2017-04-19] MEDS: HYDRALAZINE HCL 100MG TABLET GT SCH ×3 (05:34→21:58)
[2017-04-19] MEDS: LABETALOL HCL 200MG TABLET NG SCH (05:34)
[2017-04-19] MEDS: PHENYTOIN 100 MG/4 ML UDC NG SCH ×3 (05:35→21:57)
[2017-04-19] MEDS: BLOOD SUGAR DIAGNOSTIC STRIP TEST SCH ×4 (05:35→18:00)
[2017-04-19] MEDS: INSULIN LISPRO 100 UNITS/ML SUBCUT SCH ×4 (05:53→17:59)
[2017-04-19] MEDS: NITROGLYCERIN OINT 1GM/INCH UDPKT TD SCH ×3 (05:54→21:57)
[2017-04-19 06:10] LABS: HEMATOCRIT. 23.3 % (36.0-48.0); HEMOGLOBIN. 7.8 g/dL (12.0-16.0); MEAN CORPUSCULAR HEMOGLOBIN 27.4 pg (28.0-32.0); MEAN CORPUSCULAR VOLUME 82.5 fL (81.0-99.0); MEAN PLATELET VOLUME 9.6 fl (7.4-10.4); PLATELET 230 x1000/uL (130-400); RED BLOOD CELL COUNT 2.83 mill/uL (4.2-5.4); RED CELL DISTRIBUTION WIDTH 14.5 % (11.6-14.6)
[2017-04-19] MEDS: NICARDIPINE IV SCH ×2 (06:23→14:05)
[2017-04-19] MEDS: WATER IV SCH ×2 (06:23→14:05)
[2017-04-19] MEDS: DEXT 5% IV SCH ×2 (06:23→14:05)
[2017-04-19 06:29] LABS: PHOSPHORUS 2.9 mg/dL (2.5-4.9)
[2017-04-19] MEDS: FUROSEMIDE 40MG/4ML VIAL IVP SCH ×2 (06:54→18:04)
[2017-04-19 08:44] LABS: BG BASE EXCESS -1.5 mmol/L (-2.0-2.0); BG CARBOXYHEMOGLOBIN 0.3 % (0.5-1.5); BG DEOXYHEMOGLOBIN 2.7 % (0.0-5.0); BG FRACTION INSPIRED OXYGEN 30; BG HCO3 ACT 22.4 mmol/L (22.0-26.0); BG METHEMOGLOBIN 0.3 % (0.0-1.5); BG OXYGEN SATURATION 97.3 % (92.0-98.5); BG OXYHEMOGLOBIN 96.7 % (94.0-97.0); BG PCO2 33.9 mmHg (35.0-45.0); BG PH 7.437 (7.350-7.450); BG PO2 91.3 mmHg (75.0-100.0); BG SAMPLE SITE RIGHT RADIAL; BG TIDAL VOLUME(mL) 550 mL; BG TOTAL HEMOGLOBIN 8.4 g/dL (12.0-18.0); BG VENT MODE VENT - A/C; BG VENT RATE 16 set
[2017-04-19] MEDS: DOCUSATE SODIUM 250MG CAPSULE PO SCH (09:00)
[2017-04-19] MEDS: CAFFEINE 200MG TABLET NG SCH (09:47)
[2017-04-19] MEDS: CITRIC ACID/SODIUM CITRATE SOLN 15ML UDC NG SCH ×3 (09:47→18:04)
[2017-04-19] MEDS: LACTOBACILLUS GG CAPSULE PO SCH (09:47)
[2017-04-19] MEDS: FAMOTIDINE 20MG/2ML VIAL IV SCH (09:47)
[2017-04-19] MEDS: LORATADINE 10MG TABLET PO SCH (09:48)
[2017-04-19] MEDS: FENOFIBRATE NANOCRYSTALLIZED 145MG TABLET PO SCH (09:49)
[2017-04-19] MEDS: AMLODIPINE 5MG TABLET PO SCH ×3 (09:49→21:58)
[2017-04-19] MEDS: FOLIC ACID 1MG TABLET PO SCH (09:49)
[2017-04-19] MEDS: CHOLECALCIFEROL (D3) 1000 UNIT TABLET PO SCH (09:49)
[2017-04-19] MEDS: DULOXETINE HCL 60MG DR CAPSULE PO SCH (09:49)
[2017-04-19] MEDS: MIRTAZAPINE 15MG TABLET PO SCH (09:49)
[2017-04-19] MEDS: FERROUS SULFATE 325MG TABLET PO SCH (09:50)
[2017-04-19] MEDS ORDERED: POTASSIUM CHLORIDE 20MEQ TABLET SR PO NR (10:00)
[2017-04-19] MEDS ORDERED: MAGNESIUM 1 G PREMIX 100 ML IV NR (10:00)
[2017-04-19 10:01] LABS: PLATELET ESTIMATE NORMAL
[2017-04-19] MEDS ORDERED: POTASSIUM CHLORIDE INJ 20 MEQ in DEXT 5% WATER 100 ML IV NR (11:30)
[2017-04-19] MEDS: VANCOMYCIN 750 MG PREMIX 150 ML IV SCH (13:27)
[2017-04-19] MEDS: DILTIAZEM HCL 60MG TABLET NG SCH ×2 (13:28→21:57)
[2017-04-19] MEDS: LABETALOL HCL 300MG TABLET NG SCH ×2 (13:28→21:58)
[2017-04-19] MEDS ORDERED: DOCUSATE SODIUM SUGAR FREE 100MG/10ML UDC NG SCH (15:55)
[2017-04-19] MEDS ORDERED: DOCUSATE SODIUM SUGAR FREE 100MG/10ML UDC PO SCH (15:55)
[2017-04-19] MEDS ORDERED: POTASSIUM CHLORIDE INJ 20 MEQ in SODIUM CHLORIDE 0.9% 100 ML IV SCH (18:45)
[2017-04-19] MEDS: ATORVASTATIN CALCIUM 20MG TABLET PO SCH (20:38)
[2017-04-19] MEDS: ACETAMINOPHEN 325MG TABLET PO PRN (22:39)
[2017-04-20] VITALS (93 sets, daily range): BP systolic 124–189; BP diastolic 48–180
[2017-04-20] MEDS: ACETYLCYSTEINE 200MG/ML 20% VIAL 4ML INH SCH ×3 (00:18→15:55)
[2017-04-20] MEDS: IPRATROPIUM/ALBUTEROL 0.5-3(2.5)MG/3ML NEB HHN PRN ×5 (00:18→15:55)
[2017-04-20] MEDS: BLOOD SUGAR DIAGNOSTIC STRIP TEST SCH ×5 (00:38→23:57)
[2017-04-20] MEDS: METOCLOPRAMIDE HCL 10MG/2ML VIAL IV SCH ×2 (00:38→05:10)
[2017-04-20] MEDS: WATER IV SCH ×3 (00:40→21:49)
[2017-04-20] MEDS: NICARDIPINE IV SCH ×3 (00:40→21:49)
[2017-04-20] MEDS: DEXT 5% IV SCH ×3 (00:40→21:49)
[2017-04-20] MEDS: PIPERACILLIN/TAZ 3.375G PREMIX 50 ML IV SCH ×3 (01:48→16:48)
[2017-04-20] MEDS: NITROGLYCERIN OINT 1GM/INCH UDPKT TD SCH ×3 (05:10→21:50)
[2017-04-20] MEDS: PHENYTOIN 100 MG/4 ML UDC NG SCH ×3 (05:10→21:53)
[2017-04-20] MEDS: INSULIN LISPRO 100 UNITS/ML SUBCUT SCH ×5 (05:11→23:57)
[2017-04-20] MEDS: DILTIAZEM HCL 60MG TABLET NG SCH (05:11)
[2017-04-20] MEDS: HYDRALAZINE HCL 100MG TABLET GT SCH ×3 (05:11→21:51)
[2017-04-20] MEDS: LABETALOL HCL 300MG TABLET NG SCH (05:12)
[2017-04-20] MEDS: AMLODIPINE 5MG TABLET PO SCH ×3 (05:12→21:50)
[2017-04-20 05:33] LABS: HEMATOCRIT. 23.7 % (36.0-48.0); HEMOGLOBIN. 7.9 g/dL (12.0-16.0); MEAN CORPUSCULAR HEMOGLOBIN 27.5 pg (28.0-32.0); MEAN CORPUSCULAR VOLUME 82.7 fL (81.0-99.0); MEAN PLATELET VOLUME 9.4 fl (7.4-10.4); PLATELET 228 x1000/uL (130-400); RED BLOOD CELL COUNT 2.86 mill/uL (4.2-5.4); RED CELL DISTRIBUTION WIDTH 14.1 % (11.6-14.6)
[2017-04-20 06:14] LABS: PHOSPHORUS 2.9 mg/dL (2.5-4.9)
[2017-04-20 08:13] LABS: PLATELET ESTIMATE NORMAL
[2017-04-20 09:16] LABS: BG BASE EXCESS 2.2 mmol/L (-2.0-2.0); BG CARBOXYHEMOGLOBIN 0.3 % (0.5-1.5); BG DEOXYHEMOGLOBIN 3.2 % (0.0-5.0); BG FRACTION INSPIRED OXYGEN 40; BG HCO3 ACT 26.6 mmol/L (22.0-26.0); BG METHEMOGLOBIN 0.6 % (0.0-1.5); BG OXYGEN SATURATION 96.8 % (92.0-98.5); BG OXYHEMOGLOBIN 95.9 % (94.0-97.0); BG PCO2 40.5 mmHg (35.0-45.0); BG PH 7.435 (7.350-7.450); BG PO2 92.3 mmHg (75.0-100.0); BG PRESSURE SUPPORT 15; BG SAMPLE SITE RIGHT RADIAL; BG TIDAL VOLUME(mL) 550 mL; BG VENT MODE VENT - SIMV; BG VENT RATE 10 set
[2017-04-20] MEDS: CITRIC ACID/SODIUM CITRATE SOLN 15ML UDC NG SCH ×3 (09:25→16:47)
[2017-04-20] MEDS: POTASSIUM CHLORIDE 20MEQ/PACKET NG SCH ×2 (09:25→16:48)
[2017-04-20] MEDS: CHOLECALCIFEROL (D3) 1000 UNIT TABLET PO SCH (09:26)
[2017-04-20] MEDS: FERROUS SULFATE 325MG TABLET PO SCH (09:26)
[2017-04-20] MEDS: LORATADINE 10MG TABLET PO SCH (09:26)
[2017-04-20] MEDS: MIRTAZAPINE 15MG TABLET PO SCH (09:26)
[2017-04-20] MEDS: DULOXETINE HCL 60MG DR CAPSULE PO SCH (09:26)
[2017-04-20] MEDS: FAMOTIDINE 20MG/2ML VIAL IV SCH (09:26)
[2017-04-20] MEDS: FENOFIBRATE NANOCRYSTALLIZED 145MG TABLET PO SCH (09:26)
[2017-04-20] MEDS: LACTOBACILLUS GG CAPSULE PO SCH (09:26)
[2017-04-20] MEDS: FUROSEMIDE 40MG/4ML VIAL IVP SCH ×2 (09:26→16:48)
[2017-04-20] MEDS: CAFFEINE 200MG TABLET NG SCH (09:26)
[2017-04-20] MEDS: FOLIC ACID 1MG TABLET PO SCH (09:27)
[2017-04-20] MEDS ORDERED: MORPHINE SULFATE 2 MG/ML CPJ (NOT FOR IM USE) IV PRN (10:30)
[2017-04-20] MEDS ORDERED: MAGNESIUM 2 G PREMIX 50 ML IV NR (11:00)
[2017-04-20] MEDS: DILTIAZEM HCL 90MG TABLET NG SCH ×2 (13:33→21:51)
[2017-04-20] MEDS: LABETALOL HCL 200MG TABLET NG SCH ×2 (13:33→21:51)
[2017-04-20] MEDS: CLONIDINE 0.1MG TABLET PO SCH ×2 (13:33→21:50)
[2017-04-20] MEDS ORDERED: POTASSIUM CHLORIDE 20MEQ/PACKET NG NR (17:45)
[2017-04-20 21:19] LABS: BG CARBOXYHEMOGLOBIN 0.3 % (0.5-1.5); BG DEOXYHEMOGLOBIN 4.3 % (0.0-5.0); BG FRACTION INSPIRED OXYGEN 40; BG HCO3 ACT 27.1 mmol/L (22.0-26.0); BG METHEMOGLOBIN 0.5 % (0.0-1.5); BG OXYGEN SATURATION 95.7 % (92.0-98.5); BG OXYHEMOGLOBIN 94.9 % (94.0-97.0); BG PCO2 39.4 mmHg (35.0-45.0); BG PH 7.455 (7.350-7.450); BG PO2 80.9 mmHg (75.0-100.0); BG PRESSURE SUPPORT 15; BG SAMPLE SITE LEFT RADIAL; BG TIDAL VOLUME(mL) 550 mL; BG VENT MODE VENT - SIMV; BG VENT RATE 6 set
[2017-04-20] MEDS: ATORVASTATIN CALCIUM 20MG TABLET PO SCH (21:51)
[2017-04-20] MEDS: VANCOMYCIN 750 MG PREMIX 150 ML IV SCH (23:57)
[2017-04-21] VITALS (83 sets, daily range): BP systolic 84–247; BP diastolic 41–145
[2017-04-21] MEDS: ACETYLCYSTEINE 200MG/ML 20% VIAL 4ML INH SCH ×3 (00:21→14:58)
[2017-04-21] MEDS: IPRATROPIUM/ALBUTEROL 0.5-3(2.5)MG/3ML NEB HHN PRN ×3 (00:21→14:57)
[2017-04-21] MEDS: NICARDIPINE IV SCH ×4 (02:15→23:10)
[2017-04-21] MEDS: DEXT 5% IV SCH ×4 (02:15→23:10)
[2017-04-21] MEDS: WATER IV SCH ×4 (02:15→23:10)
[2017-04-21] MEDS: PIPERACILLIN/TAZ 3.375G PREMIX 50 ML IV SCH ×4 (02:28→23:08)
[2017-04-21] MEDS: PHENYTOIN 100 MG/4 ML UDC NG SCH ×3 (05:10→21:30)
[2017-04-21] MEDS: CLONIDINE 0.1MG TABLET PO SCH (05:10)
[2017-04-21] MEDS: NITROGLYCERIN OINT 1GM/INCH UDPKT TD SCH ×4 (05:10→23:09)
[2017-04-21] MEDS: DILTIAZEM HCL 90MG TABLET NG SCH ×3 (05:11→21:30)
[2017-04-21] MEDS: HYDRALAZINE HCL 100MG TABLET GT SCH ×3 (05:11→21:31)
[2017-04-21] MEDS: LABETALOL HCL 200MG TABLET NG SCH ×3 (05:11→21:29)
[2017-04-21] MEDS: BLOOD SUGAR DIAGNOSTIC STRIP TEST SCH ×4 (05:12→23:27)
[2017-04-21] MEDS: AMLODIPINE 5MG TABLET PO SCH ×3 (05:12→21:32)
[2017-04-21] MEDS: INSULIN LISPRO 100 UNITS/ML SUBCUT SCH ×4 (05:12→23:28)
[2017-04-21 05:45] LABS: HEMATOCRIT. 24.8 % (36.0-48.0); HEMOGLOBIN. 8.2 g/dL (12.0-16.0); MEAN CORPUSCULAR HEMOGLOBIN 27.3 pg (28.0-32.0); MEAN CORPUSCULAR VOLUME 82.6 fL (81.0-99.0); MEAN PLATELET VOLUME 9.4 fl (7.4-10.4); PLATELET 249 x1000/uL (130-400); RED BLOOD CELL COUNT 3.01 mill/uL (4.2-5.4); RED CELL DISTRIBUTION WIDTH 14.1 % (11.6-14.6)
[2017-04-21 06:12] LABS: PHOSPHORUS 2.7 mg/dL (2.5-4.9)
[2017-04-21 08:55] LABS: PLATELET ESTIMATE NORMAL
[2017-04-21] MEDS: FOLIC ACID 1MG TABLET PO SCH (09:23)
[2017-04-21] MEDS: FENOFIBRATE NANOCRYSTALLIZED 145MG TABLET PO SCH (09:23)
[2017-04-21] MEDS: CAFFEINE 200MG TABLET NG SCH (09:23)
[2017-04-21] MEDS: MIRTAZAPINE 15MG TABLET PO SCH (09:23)
[2017-04-21] MEDS: LORATADINE 10MG TABLET PO SCH (09:23)
[2017-04-21] MEDS: CHOLECALCIFEROL (D3) 1000 UNIT TABLET PO SCH (09:23)
[2017-04-21] MEDS: FUROSEMIDE 40MG/4ML VIAL IVP SCH ×2 (09:24→17:53)
[2017-04-21] MEDS: FERROUS SULFATE 325MG TABLET PO SCH (09:24)
[2017-04-21] MEDS: POTASSIUM CHLORIDE 20MEQ/PACKET NG SCH ×2 (09:24→17:00)
[2017-04-21] MEDS: CITRIC ACID/SODIUM CITRATE SOLN 15ML UDC NG SCH (09:24)
[2017-04-21] MEDS: FAMOTIDINE 20MG/2ML VIAL IV SCH (09:24)
[2017-04-21] MEDS: DULOXETINE HCL 60MG DR CAPSULE PO SCH (09:24)
[2017-04-21] MEDS: LACTOBACILLUS GG CAPSULE PO SCH (09:24)
[2017-04-21 10:41] LABS: BG BASE EXCESS 5.1 mmol/L (-2.0-2.0); BG CARBOXYHEMOGLOBIN 0.3 % (0.5-1.5); BG DEOXYHEMOGLOBIN 5.1 % (0.0-5.0); BG FRACTION INSPIRED OXYGEN 40; BG HCO3 ACT 29.7 mmol/L (22.0-26.0); BG METHEMOGLOBIN 0.4 % (0.0-1.5); BG OXYGEN SATURATION 94.9 % (92.0-98.5); BG OXYHEMOGLOBIN 94.2 % (94.0-97.0); BG PCO2 44.1 mmHg (35.0-45.0); BG PH 7.446 (7.350-7.450); BG PO2 77.6 mmHg (75.0-100.0); BG PRESSURE SUPPORT 8; BG SAMPLE SITE RIGHT RADIAL; BG TOTAL HEMOGLOBIN 9.6 g/dL (12.0-18.0); BG VENT MODE VENT - CPAP
[2017-04-21] MEDS: CLONIDINE 0.2MG TABLET NG SCH ×2 (14:13→21:30)
[2017-04-21] MEDS: ATORVASTATIN CALCIUM 20MG TABLET PO SCH (21:29)
[2017-04-22] VITALS (25 sets, daily range): BP systolic 119–167; BP diastolic 37–99
[2017-04-22] MEDS: WATER IV SCH (04:42)
[2017-04-22] MEDS: DEXT 5% IV SCH (04:42)
[2017-04-22] MEDS: NICARDIPINE IV SCH (04:42)
[2017-04-22] MEDS: AMLODIPINE 5MG TABLET PO SCH ×3 (05:48→21:41)
[2017-04-22] MEDS: PHENYTOIN 100 MG/4 ML UDC NG SCH ×3 (05:48→21:40)
[2017-04-22 05:49] LABS: HEMATOCRIT. 24.5 % (36.0-48.0); HEMOGLOBIN. 8.1 g/dL (12.0-16.0); MEAN CORPUSCULAR HEMOGLOBIN 27.3 pg (28.0-32.0); MEAN CORPUSCULAR VOLUME 81.9 fL (81.0-99.0); PLATELET 280 x1000/uL (130-400); RED BLOOD CELL COUNT 2.99 mill/uL (4.2-5.4); RED CELL DISTRIBUTION WIDTH 13.9 % (11.6-14.6)
[2017-04-22] MEDS: HYDRALAZINE HCL 100MG TABLET GT SCH ×3 (05:49→21:38)
[2017-04-22] MEDS: CLONIDINE 0.2MG TABLET NG SCH ×3 (05:50→21:39)
[2017-04-22] MEDS: DILTIAZEM HCL 90MG TABLET NG SCH ×3 (05:50→21:39)
[2017-04-22] MEDS: NITROGLYCERIN OINT 1GM/INCH UDPKT TD SCH ×3 (05:51→17:40)
[2017-04-22] MEDS: INSULIN LISPRO 100 UNITS/ML SUBCUT SCH ×4 (05:51→23:52)
[2017-04-22] MEDS: BLOOD SUGAR DIAGNOSTIC STRIP TEST SCH ×4 (05:51→23:43)
[2017-04-22] MEDS: LABETALOL HCL 200MG TABLET NG SCH ×3 (05:53→21:40)
[2017-04-22] MEDS: FUROSEMIDE 40MG/4ML VIAL IVP SCH (06:55)
[2017-04-22] MEDS: FERROUS SULFATE 325MG TABLET PO SCH (07:39)
[2017-04-22] MEDS: PIPERACILLIN/TAZ 3.375G PREMIX 50 ML IV SCH (07:39)
[2017-04-22] MEDS: FOLIC ACID 1MG TABLET PO SCH (08:24)
[2017-04-22] MEDS: CHOLECALCIFEROL (D3) 1000 UNIT TABLET PO SCH (08:24)
[2017-04-22] MEDS: FENOFIBRATE NANOCRYSTALLIZED 145MG TABLET PO SCH (08:24)
[2017-04-22] MEDS: CITRIC ACID/SODIUM CITRATE SOLN 15ML UDC NG SCH (08:24)
[2017-04-22] MEDS: DULOXETINE HCL 60MG DR CAPSULE PO SCH (08:24)
[2017-04-22] MEDS: CAFFEINE 200MG TABLET NG SCH (08:24)
[2017-04-22] MEDS: LACTOBACILLUS GG CAPSULE PO SCH (08:24)
[2017-04-22] MEDS: POTASSIUM CHLORIDE 20MEQ/PACKET NG SCH ×2 (08:24→17:40)
[2017-04-22] MEDS: MIRTAZAPINE 15MG TABLET PO SCH (08:24)
[2017-04-22] MEDS: FAMOTIDINE 20MG/2ML VIAL IV SCH (08:25)
[2017-04-22] MEDS: LORATADINE 10MG TABLET PO SCH (08:25)
[2017-04-22] MEDS ORDERED: WATER IV SCH (09:30)
[2017-04-22] MEDS ORDERED: DEXT 5% IV SCH (09:30)
[2017-04-22] MEDS ORDERED: NICARDIPINE IV SCH (09:30)
[2017-04-22 09:39] LABS: BG BASE EXCESS 4.3 mmol/L (-2.0-2.0); BG CARBOXYHEMOGLOBIN 0.2 % (0.5-1.5); BG FRACTION INSPIRED OXYGEN 21; BG HCO3 ACT 27.8 mmol/L (22.0-26.0); BG OXYHEMOGLOBIN 87.8 % (94.0-97.0); BG PCO2 37.2 mmHg (35.0-45.0); BG PH 7.492 (7.350-7.450); BG PO2 53.4 mmHg (75.0-100.0); BG SAMPLE SITE LEFT RADIAL; BG TOTAL HEMOGLOBIN 8.6 g/dL (12.0-18.0); BG VENT MODE ROOM AIR
[2017-04-22 10:40] LABS: PLATELET ESTIMATE NORMAL
[2017-04-22] MEDS: VANCOMYCIN 750 MG PREMIX 150 ML IV SCH (12:48)
[2017-04-22] MEDS: PIPERACILLIN/TAZ 2.25G PREMIX 50 ML IV SCH ×2 (16:38→21:39)
[2017-04-22] MEDS: IPRATROPIUM/ALBUTEROL 0.5-3(2.5)MG/3ML NEB HHN PRN (21:07)
[2017-04-22] MEDS: ATORVASTATIN CALCIUM 20MG TABLET PO SCH (21:38)
[2017-04-23] VITALS (12 sets, daily range): BP systolic 115–169; BP diastolic 51–107
[2017-04-23] MEDS: NITROGLYCERIN OINT 1GM/INCH UDPKT TD SCH ×4 (00:22→17:12)
[2017-04-23] MEDS: PIPERACILLIN/TAZ 2.25G PREMIX 50 ML IV SCH ×4 (02:41→21:04)
[2017-04-23] MEDS: CLONIDINE 0.2MG TABLET NG SCH ×3 (06:00→22:13)
[2017-04-23] MEDS: PHENYTOIN 100 MG/4 ML UDC NG SCH ×3 (06:00→22:00)
[2017-04-23] MEDS: BLOOD SUGAR DIAGNOSTIC STRIP TEST SCH ×3 (06:00→17:12)
[2017-04-23] MEDS: INSULIN LISPRO 100 UNITS/ML SUBCUT SCH ×3 (06:00→17:13)
[2017-04-23] MEDS: DILTIAZEM HCL 90MG TABLET NG SCH ×3 (06:00→21:13)
[2017-04-23] MEDS: HYDRALAZINE HCL 100MG TABLET GT SCH ×3 (06:01→21:04)
[2017-04-23] MEDS: AMLODIPINE 5MG TABLET PO SCH ×3 (06:02→21:13)
[2017-04-23] MEDS: LABETALOL HCL 200MG TABLET NG SCH ×3 (06:02→21:19)
[2017-04-23 07:57] LABS: PHOSPHORUS 4.6 mg/dL (2.5-4.9)
[2017-04-23 08:12] LABS: HEMATOCRIT. 25.8 % (36.0-48.0); HEMOGLOBIN. 8.7 g/dL (12.0-16.0); MEAN CORPUSCULAR HEMOGLOBIN 27.6 pg (28.0-32.0); MEAN CORPUSCULAR VOLUME 81.9 fL (81.0-99.0); MEAN PLATELET VOLUME 9.3 fl (7.4-10.4); PLATELET 292 x1000/uL (130-400); RED BLOOD CELL COUNT 3.15 mill/uL (4.2-5.4); RED CELL DISTRIBUTION WIDTH 13.9 % (11.6-14.6)
[2017-04-23] MEDS: LACTOBACILLUS GG CAPSULE PO SCH (08:34)
[2017-04-23] MEDS: DULOXETINE HCL 60MG DR CAPSULE PO SCH (08:34)
[2017-04-23] MEDS: FENOFIBRATE NANOCRYSTALLIZED 145MG TABLET PO SCH (08:34)
[2017-04-23] MEDS: FERROUS SULFATE 325MG TABLET PO SCH (08:35)
[2017-04-23] MEDS: FAMOTIDINE 20MG/2ML VIAL IV SCH (08:35)
[2017-04-23] MEDS: FOLIC ACID 1MG TABLET PO SCH (08:35)
[2017-04-23] MEDS: POTASSIUM CHLORIDE 20MEQ/PACKET NG SCH ×2 (08:35→16:34)
[2017-04-23] MEDS: MIRTAZAPINE 15MG TABLET PO SCH (08:35)
[2017-04-23] MEDS: CHOLECALCIFEROL (D3) 1000 UNIT TABLET PO SCH (08:35)
[2017-04-23] MEDS: LORATADINE 10MG TABLET PO SCH (08:46)
[2017-04-23] MEDS: NEBIVOLOL HCL 5 MG TABLET PO SCH (08:46)
[2017-04-23] MEDS: FUROSEMIDE 40MG/4ML VIAL IVP SCH (11:00)
[2017-04-23] MEDS: CAFFEINE 200MG TABLET NG SCH (11:00)
[2017-04-23 16:26] LABS: PLATELET ESTIMATE NORMAL
[2017-04-23] MEDS: ATORVASTATIN CALCIUM 20MG TABLET PO SCH (21:04)
[2017-04-24] VITALS (13 sets, daily range): BP systolic 97–167; BP diastolic 48–76
[2017-04-24] MEDS: NITROGLYCERIN OINT 1GM/INCH UDPKT TD SCH ×5 (00:21→23:26)
[2017-04-24] MEDS: VANCOMYCIN 750 MG PREMIX 150 ML IV SCH (00:21)
[2017-04-24] MEDS: PIPERACILLIN/TAZ 2.25G PREMIX 50 ML IV SCH ×2 (04:38→09:25)
[2017-04-24] MEDS: DILTIAZEM HCL 90MG TABLET NG SCH ×3 (05:48→21:43)
[2017-04-24] MEDS: AMLODIPINE 5MG TABLET PO SCH ×3 (05:48→21:42)
[2017-04-24] MEDS: LABETALOL HCL 200MG TABLET NG SCH ×3 (05:49→21:42)
[2017-04-24] MEDS: CLONIDINE 0.2MG TABLET NG SCH ×3 (05:49→21:43)
[2017-04-24] MEDS: BLOOD SUGAR DIAGNOSTIC STRIP TEST SCH ×5 (05:50→23:26)
[2017-04-24] MEDS: PHENYTOIN 100 MG/4 ML UDC NG SCH (05:51)
[2017-04-24] MEDS: HYDRALAZINE HCL 100MG TABLET GT SCH ×3 (05:59→21:43)
[2017-04-24] MEDS: INSULIN LISPRO 100 UNITS/ML SUBCUT SCH ×5 (06:00→23:27)
[2017-04-24 07:47] LABS: HEMOGLOBIN. 8.1 g/dL (12.0-16.0); MEAN CORPUSCULAR HEMOGLOBIN 27.4 pg (28.0-32.0); MEAN CORPUSCULAR VOLUME 81.5 fL (81.0-99.0); MEAN PLATELET VOLUME 9.2 fl (7.4-10.4); PLATELET 274 x1000/uL (130-400); RED BLOOD CELL COUNT 2.94 mill/uL (4.2-5.4)
[2017-04-24] MEDS: DULOXETINE HCL 60MG DR CAPSULE PO SCH (08:43)
[2017-04-24] MEDS: FOLIC ACID 1MG TABLET PO SCH (08:43)
[2017-04-24] MEDS: FUROSEMIDE 40MG/4ML VIAL IVP SCH (08:43)
[2017-04-24] MEDS: LORATADINE 10MG TABLET PO SCH (08:43)
[2017-04-24] MEDS: FENOFIBRATE NANOCRYSTALLIZED 145MG TABLET PO SCH (08:43)
[2017-04-24] MEDS: FAMOTIDINE 20MG/2ML VIAL IV SCH (08:43)
[2017-04-24] MEDS: POTASSIUM CHLORIDE 20MEQ/PACKET NG SCH (08:43)
[2017-04-24] MEDS: FERROUS SULFATE 325MG TABLET PO SCH (08:43)
[2017-04-24] MEDS: CHOLECALCIFEROL (D3) 1000 UNIT TABLET PO SCH (08:44)
[2017-04-24] MEDS: LACTOBACILLUS GG CAPSULE PO SCH (08:44)
[2017-04-24] MEDS: CAFFEINE 200MG TABLET NG SCH (08:44)
[2017-04-24] MEDS: MIRTAZAPINE 15MG TABLET PO SCH (08:44)
[2017-04-24] MEDS: NEBIVOLOL HCL 5 MG TABLET PO SCH (08:44)
[2017-04-24] MEDS ORDERED: POTASSIUM CHLORIDE 20MEQ TABLET SR PO SCH (09:15)
[2017-04-24] MEDS ORDERED: MORPHINE SULFATE 2 MG/ML CPJ (NOT FOR IM USE) IV PRN (10:30)
[2017-04-24 14:15] LABS: PLATELET ESTIMATE NORMAL
[2017-04-24] MEDS: PHENYTOIN SODIUM EXTENDED 100MG CAPSULE PO SCH ×2 (14:27→21:41)
[2017-04-24] MEDS: ATORVASTATIN CALCIUM 20MG TABLET PO SCH (21:41)
[2017-04-25] VITALS (11 sets, daily range): BP systolic 121–161; BP diastolic 32–70
[2017-04-25] MEDS: INSULIN LISPRO 100 UNITS/ML SUBCUT SCH ×3 (06:00→17:59)
[2017-04-25] MEDS: PHENYTOIN SODIUM EXTENDED 100MG CAPSULE PO SCH ×3 (06:18→20:47)
[2017-04-25] MEDS: HYDRALAZINE HCL 100MG TABLET GT SCH ×3 (06:19→20:48)
[2017-04-25] MEDS: AMLODIPINE 5MG TABLET PO SCH ×3 (06:19→20:47)
[2017-04-25] MEDS: LABETALOL HCL 200MG TABLET NG SCH ×3 (06:19→20:47)
[2017-04-25] MEDS: DILTIAZEM HCL 90MG TABLET NG SCH ×3 (06:19→20:47)
[2017-04-25] MEDS: CLONIDINE 0.2MG TABLET NG SCH ×3 (06:19→20:49)
[2017-04-25] MEDS: BLOOD SUGAR DIAGNOSTIC STRIP TEST SCH ×3 (06:20→17:59)
[2017-04-25] MEDS: NITROGLYCERIN OINT 1GM/INCH UDPKT TD SCH ×3 (06:20→18:00)
[2017-04-25 06:30] LABS: BASOPHILS % 0.8 % (0.0-2.0); EOSINOPHILS % 10.6 % (0.0-5.0); HEMATOCRIT. 25.8 % (36.0-48.0); HEMOGLOBIN. 8.5 g/dL (12.0-16.0); LYMPHOCYTES % 11.3 % (20.0-50.0); MEAN CORPUSCULAR HEMOGLOBIN 27.1 pg (28.0-32.0); MEAN CORPUSCULAR VOLUME 82.3 fL (81.0-99.0); MONOCYTES % 10.7 % (2.0-8.0); NEUTROPHILS % 66.6 % (40.0-76.0); PLATELET 274 x1000/uL (130-400); RED BLOOD CELL COUNT 3.14 mill/uL (4.2-5.4); RED CELL DISTRIBUTION WIDTH 13.9 % (11.6-14.6)
[2017-04-25] MEDS: CAFFEINE 200MG TABLET NG SCH (09:00)
[2017-04-25] MEDS: DULOXETINE HCL 60MG DR CAPSULE PO SCH (09:01)
[2017-04-25] MEDS: POTASSIUM CHLORIDE 20MEQ TABLET SR PO SCH (09:01)
[2017-04-25] MEDS: LACTOBACILLUS GG CAPSULE PO SCH (09:02)
[2017-04-25] MEDS: FENOFIBRATE NANOCRYSTALLIZED 145MG TABLET PO SCH (09:02)
[2017-04-25] MEDS: FUROSEMIDE 40MG/4ML VIAL IVP SCH (09:02)
[2017-04-25] MEDS: MIRTAZAPINE 15MG TABLET PO SCH (09:02)
[2017-04-25] MEDS: FAMOTIDINE 20MG/2ML VIAL IV SCH (09:02)
[2017-04-25] MEDS: FERROUS SULFATE 325MG TABLET PO SCH (09:04)
[2017-04-25] MEDS: NEBIVOLOL HCL 5 MG TABLET PO SCH (09:04)
[2017-04-25] MEDS: LORATADINE 10MG TABLET PO SCH (09:04)
[2017-04-25] MEDS: FOLIC ACID 1MG TABLET PO SCH (09:04)
[2017-04-25] MEDS: CHOLECALCIFEROL (D3) 1000 UNIT TABLET PO SCH (09:04)
[2017-04-25] MEDS: VANCOMYCIN 750 MG PREMIX 150 ML IV SCH (12:20)
[2017-04-25] MEDS: ATORVASTATIN CALCIUM 20MG TABLET PO SCH (20:47)
[2017-04-26] VITALS (8 sets, daily range): BP systolic 135–158; BP diastolic 53–67
[2017-04-26] MEDS: INSULIN LISPRO 100 UNITS/ML SUBCUT SCH
[2017-04-26] MEDS: BLOOD SUGAR DIAGNOSTIC STRIP TEST SCH
[2017-04-26] MEDS: NITROGLYCERIN OINT 1GM/INCH UDPKT TD SCH ×2 (00:14→05:45)
[2017-04-26] MEDS: AMLODIPINE 5MG TABLET PO SCH (05:45)
[2017-04-26] MEDS: CLONIDINE 0.2MG TABLET NG SCH (05:46)
[2017-04-26] MEDS: LABETALOL HCL 200MG TABLET NG SCH (05:46)
[2017-04-26] MEDS: DILTIAZEM HCL 90MG TABLET NG SCH (05:46)
[2017-04-26] MEDS: PHENYTOIN SODIUM EXTENDED 100MG CAPSULE PO SCH (05:46)
[2017-04-26] MEDS: HYDRALAZINE HCL 100MG TABLET GT SCH (05:47)
[2017-04-26 06:52] LABS: HEMATOCRIT. 24.1 % (36.0-48.0); MEAN CORPUSCULAR HEMOGLOBIN 26.9 pg (28.0-32.0); MEAN CORPUSCULAR VOLUME 81.3 fL (81.0-99.0); MEAN PLATELET VOLUME 9.2 fl (7.4-10.4); PLATELET 298 x1000/uL (130-400); RED BLOOD CELL COUNT 2.96 mill/uL (4.2-5.4); RED CELL DISTRIBUTION WIDTH 14.1 % (11.6-14.6)
[2017-04-26] MEDS ORDERED: BLOOD SUGAR DIAGNOSTIC STRIP TEST SCH (07:30)
[2017-04-26] MEDS ORDERED: INSULIN LISPRO 100 UNITS/ML SUBCUT SCH (07:30)
[2017-04-26] MEDS: FERROUS SULFATE 325MG TABLET PO SCH (09:02)
[2017-04-26] MEDS: POTASSIUM CHLORIDE 20MEQ TABLET SR PO SCH (09:03)
[2017-04-26] MEDS: FOLIC ACID 1MG TABLET PO SCH (09:03)
[2017-04-26] MEDS: MIRTAZAPINE 15MG TABLET PO SCH (09:03)
[2017-04-26] MEDS: FAMOTIDINE 20MG/2ML VIAL IV SCH (09:04)
[2017-04-26] MEDS: NEBIVOLOL HCL 5 MG TABLET PO SCH (09:04)
[2017-04-26] MEDS: DULOXETINE HCL 60MG DR CAPSULE PO SCH (09:04)
[2017-04-26] MEDS: FENOFIBRATE NANOCRYSTALLIZED 145MG TABLET PO SCH (09:04)
[2017-04-26] MEDS: CHOLECALCIFEROL (D3) 1000 UNIT TABLET PO SCH (09:04)
[2017-04-26] MEDS: LACTOBACILLUS GG CAPSULE PO SCH (09:04)
[2017-04-26] MEDS: LORATADINE 10MG TABLET PO SCH (09:06)
[2017-04-26] MEDS: CAFFEINE 200MG TABLET NG SCH (09:06)
[2017-04-26 10:19] LABS: PLATELET ESTIMATE NORMAL
[2017-04-27] MEDS ORDERED: FUROSEMIDE 40MG/4ML VIAL IVP SCH (09:00)
== END 2017-04-26 12:45 | DRG 870 ==
LOC: ER 18:33 → EDBEDREQ 22:29 → 6EST 22:31 → ENRESERV 22:41 → 6EST 23:18 → UNDOADMIN 23:18 → CVICU 04-13 15:58 → 5EST 04-22 14:14
PROVIDERS: ADMIT Internal Medicine Geriatric Medicine; ATTEND Internal Medicine Geriatric Medicine
PROC: 30233N1 Transfusion of Nonautologous Red Blood Cells into Peripheral Vein, Percutaneous Approach (ICD-10-PCS; 2017-04-12)
PROC: 5A1955Z Respiratory Ventilation, Greater than 96 Consecutive Hours (ICD-10-PCS; principal; 2017-04-13)
PROC: 0BH17EZ Insertion of Endotracheal Airway into Trachea, Via Natural or Artificial Opening (ICD-10-PCS; 2017-04-13)
PROC: 02HV33Z Insertion of Infusion Device into Superior Vena Cava, Percutaneous Approach (ICD-10-PCS; 2017-04-24)
PROC: B548ZZA Ultrasonography of Superior Vena Cava, Guidance (ICD-10-PCS; 2017-04-24)
DX: A41.9 Sepsis, unspecified organism (principal); I21.4 Non-ST elevation (NSTEMI) myocardial infarction; N17.0 Acute kidney failure with tubular necrosis; J96.00 Acute respiratory failure, unspecified whether with hypoxia or hypercapnia; J69.0 Pneumonitis due to inhalation of food and vomit; I50.33 Acute on chronic diastolic (congestive) heart failure; I95.9 Hypotension, unspecified; E46 Unspecified protein-calorie malnutrition; D68.59 Other primary thrombophilia; E11.22 Type 2 diabetes mellitus with diabetic chronic kidney disease; I69.351 Hemiplegia and hemiparesis following cerebral infarction affecting right dominant side; E87.2 Acidosis; I13.0 Hypertensive heart and chronic kidney disease with heart failure and stage 1 through stage 4 chronic kidney disease, or unspecified chronic kidney disease; K56.7 Ileus, unspecified; E11.40 Type 2 diabetes mellitus with diabetic neuropathy, unspecified; D64.9 Anemia, unspecified; K57.90 Diverticulosis of intestine, part unspecified, without perforation or abscess without bleeding; N18.3 Chronic kidney disease, stage 3 (moderate); E86.1 Hypovolemia; E11.51 Type 2 diabetes mellitus with diabetic peripheral angiopathy without gangrene; D50.9 Iron deficiency anemia, unspecified; E78.00 Pure hypercholesterolemia, unspecified; E83.42 Hypomagnesemia; E87.6 Hypokalemia; F32.9 Major depressive disorder, single episode, unspecified; G40.909 Epilepsy, unspecified, not intractable, without status epilepticus; I27.20 Pulmonary hypertension, unspecified; K21.9 Gastro-esophageal reflux disease without esophagitis; R31.29 Other microscopic hematuria; R13.10 Dysphagia, unspecified; R33.9 Retention of urine, unspecified; Z66 Do not resuscitate; I69.320 Aphasia following cerebral infarction; Z79.82 Long term (current) use of aspirin; I25.2 Old myocardial infarction; Z79.899 Other long term (current) drug therapy; Z87.01 Personal history of pneumonia (recurrent); Z87.11 Personal history of peptic ulcer disease; Z90.710 Acquired absence of both cervix and uterus; Z99.3 Dependence on wheelchair; Z88.2 Allergy status to sulfonamides; Z68.31 Body mass index [BMI] 31.0-31.9, adult
CPT/HCPCS: 31500; 36415; 36430; 36569; 36600; 71010; 76770; 76937; 80048; 80053; 80185; 80202; 81001; 82270; 82375; 82550; 82805; 82962; 83540; 83550; 83690; 83735; 83880; 84100; 84132; 84478; 84484; 85025; 85610; 86038; 86160; 86850; 86900; 86920; 87040; 87070; 87086; 92610; 93005; 93306; 93970; 94002; 94003; 94640; 94664; 97163; 97530; 99285; C1725; J0330; J1165; J1815; J1940; J2250; J2543; J2704; J2765; J3010; J3370; J3475; J3480; J3490; J7040; J7050; J7060; J7608; J7620; P9016; A4315

== ENCOUNTER 2017-05-15 15:16 | Observation (INO) | payer MEDICARE ==
[~2017-05-15] VITALS: Ht 167.6 cm; Wt 72.6 kg
[2017-05-15] MEDS ORDERED: DEXTROSE 50% WATER 50ML SYRINGE IV PRN (16:15)
[2017-05-15] MEDS: BLOOD SUGAR DIAGNOSTIC STRIP TEST SCH ×2 (17:15→21:00)
[2017-05-15] MEDS: INSULIN LISPRO 100 UNITS/ML SUBCUT SCH ×2 (17:15→21:00)
[2017-05-15 17:31] VITALS: BP 154/64
[2017-05-15 18:31] VITALS: BP 155/62
[2017-05-15 19:31] LABS: BASOPHILS % 1.1 % (0.0-2.0); EOSINOPHILS % 4.1 % (0.0-5.0); HEMATOCRIT. 24.3 % (36.0-48.0); LYMPHOCYTES % 21.6 % (20.0-50.0); MEAN CORPUSCULAR HEMOGLOBIN 27.3 pg (28.0-32.0); MEAN CORPUSCULAR VOLUME 82.8 fL (81.0-99.0); MEAN PLATELET VOLUME 8.9 fl (7.4-10.4); MONOCYTES % 9.6 % (2.0-8.0); NEUTROPHILS % 63.6 % (40.0-76.0); PLATELET 181 x1000/uL (130-400); RED BLOOD CELL COUNT 2.93 mill/uL (4.2-5.4); RED CELL DISTRIBUTION WIDTH 14.6 % (11.6-14.6)
[2017-05-15 19:44] LABS: INR 1.1; PROTHROMBIN TIME 11.5 sec (9.4-11.6)
[2017-05-15 19:59] LABS: CHLORIDE 104 mEq/L (98-107)
[2017-05-15 20:00] VITALS: BP 164/57
[2017-05-15] MEDS: LABETALOL HCL 200MG TABLET PO SCH (22:14)
[2017-05-15] MEDS: HYDRALAZINE HCL 50MG TABLET PO SCH (22:14)
[2017-05-16] VITALS (16 sets, daily range): BP systolic 118–175; BP diastolic 50–65
[2017-05-16] MEDS ORDERED: CLON0.1T14 TD (04:41)
[2017-05-16] MEDS ORDERED: DOCU-138 PO (04:41)
[2017-05-16] MEDS ORDERED: LACT1CAP70 PO (04:41)
[2017-05-16] MEDS ORDERED: GUAI600T44 PO (04:41)
[2017-05-16] MEDS ORDERED: MIRT15TA6 PO (04:41)
[2017-05-16] MEDS ORDERED: TUSSL PO (04:57)
[2017-05-16] MEDS ORDERED: NEPVIT PO (04:57)
[2017-05-16] MEDS ORDERED: NITR1PAT9 TD (04:57)
[2017-05-16] MEDS ORDERED: INSLIS SUBCUT (04:57)
[2017-05-16] MEDS ORDERED: AMLO2.5T45 PO (04:57)
[2017-05-16] MEDS ORDERED: LABE100T PO (04:57)
[2017-05-16] MEDS ORDERED: ATROV INH (04:57)
[2017-05-16] MEDS ORDERED: ACET-2178 PO (04:57)
[2017-05-16] MEDS ORDERED: HYDR100T26 PO (04:57)
[2017-05-16] MEDS ORDERED: NA P230E RC (04:57)
[2017-05-16] MEDS ORDERED: BISA-81 PO (04:57)
[2017-05-16] MEDS ORDERED: MOM PO (04:57)
[2017-05-16] MEDS ORDERED: FERR142T6 PO (04:57)
[2017-05-16] MEDS: HYDRALAZINE HCL 50MG TABLET PO SCH (05:24)
[2017-05-16] MEDS: LABETALOL HCL 200MG TABLET PO SCH ×3 (05:24→21:10)
[2017-05-16] MEDS: BLOOD SUGAR DIAGNOSTIC STRIP TEST SCH ×4 (06:13→21:00)
[2017-05-16] MEDS: INSULIN LISPRO 100 UNITS/ML SUBCUT SCH ×4 (06:13→21:00)
[2017-05-16] MEDS: AMLODIPINE 5MG TABLET PO SCH ×2 (07:12→21:04)
[2017-05-16] MEDS ORDERED: POTASSIUM CHLORIDE 20MEQ TABLET SR PO SCH (09:00)
[2017-05-16] MEDS ORDERED: POTASSIUM CHLORIDE 20MEQ TABLET SR PO NR (09:30)
[2017-05-16] MEDS: HYDRALAZINE HCL 100MG TABLET PO SCH ×3 (10:41→21:10)
[2017-05-16] MEDS: FERROUS SULFATE 325MG TABLET PO SCH ×2 (13:12→17:59)
[2017-05-16 13:13] LABS: BASOPHILS % 1.3 % (0.0-2.0); EOSINOPHILS % 5.6 % (0.0-5.0); HEMATOCRIT. 24.1 % (36.0-48.0); LYMPHOCYTES % 23.1 % (20.0-50.0); MEAN CORPUSCULAR HEMOGLOBIN 27.7 pg (28.0-32.0); MEAN CORPUSCULAR VOLUME 83.8 fL (81.0-99.0); MEAN PLATELET VOLUME 8.7 fl (7.4-10.4); MONOCYTES % 13.9 % (2.0-8.0); NEUTROPHILS % 56.1 % (40.0-76.0); PLATELET 188 x1000/uL (130-400); RED BLOOD CELL COUNT 2.88 mill/uL (4.2-5.4)
[2017-05-17] MEDS ORDERED: FOLIC ACID/VITAMIN B COMP W-C TABLET PO SCH (09:00)
[2017-05-22] MEDS ORDERED: CLONIDINE HCL 0.3MG/24HR PATCH TD SCH (09:00)
[2017-06-11] MEDS ORDERED: DULO60CA44 PO (14:44)
[2017-06-11] MEDS ORDERED: XALAO EACHEYE (14:44)
[2017-06-11] MEDS ORDERED: SITA100T11 PO (14:44)
[2017-06-11] MEDS ORDERED: PREG50CA PO (14:44)
[2017-06-11] MEDS ORDERED: DEXL60CA3 PO (14:44)
[2017-06-11] MEDS ORDERED: ATOR20TA65 PO (14:44)
[2017-06-11] MEDS ORDERED: PHEN100C4 PO (14:44)
[2017-06-11] MEDS ORDERED: PROP10DR2 EACHEYE (14:44)
[2017-06-11] MEDS ORDERED: ASPI-1159 PO (14:44)
[2017-06-11] MEDS ORDERED: DIAZ1KIT RC (14:44)
[2017-06-11] MEDS ORDERED: CLOP75TA16 PO (14:44)
[2017-06-11] MEDS ORDERED: MINO2.5T2 PO (14:44)
[2017-06-11] MEDS ORDERED: FENO145T19 PO (14:44)
[2017-06-11] MEDS ORDERED: LORA10TA7 PO (14:44)
[2017-06-11] MEDS ORDERED: CHOL100044 PO (14:44)
[2017-06-11] MEDS ORDERED: OLME1TAB30 PO (14:44)
[2017-06-11] MEDS ORDERED: OMEP20CA10 PO (14:44)
[2017-07-08] MEDS ORDERED: LACT1CAP56 PO (07:02)
[2017-07-08] MEDS ORDERED: PROP10DR2 EACHEYE (07:02)
== END 2017-05-16 22:10 ==
LOC: 8WST 15:16 → INTOOBSV 15:16
PROVIDERS: ADMIT Internal Medicine Geriatric Medicine; ATTEND Internal Medicine Geriatric Medicine
DX: D64.9 Anemia, unspecified (principal); R53.1 Weakness; E11.22 Type 2 diabetes mellitus with diabetic chronic kidney disease; I12.0 Hypertensive chronic kidney disease with stage 5 chronic kidney disease or end stage renal disease; N18.6 End stage renal disease; E46 Unspecified protein-calorie malnutrition; G40.909 Epilepsy, unspecified, not intractable, without status epilepticus; I69.351 Hemiplegia and hemiparesis following cerebral infarction affecting right dominant side; R19.7 Diarrhea, unspecified; D69.6 Thrombocytopenia, unspecified; E87.6 Hypokalemia; Z90.710 Acquired absence of both cervix and uterus
CPT/HCPCS: 36415; 36430; 80048; 80053; 82962; 83540; 83550; 85025; 85610; 86850; 86900; 86901; 86920; G0378; P9016

== ENCOUNTER → 2017-06-11 | Day surgery (SDC) | payer MEDICARE ==
[~2017-06-11] VITALS: Ht 175.3 cm; Wt 62.8 kg
[~2017-06-11] MED LIST changes: +ACET-2178 PO; +AMLO2.5T45 PO; -AMLO5TAB4 PO; -ATOR20TA PO; +ATOR20TA65 PO; +ATROV INH; +BACITRACIN ZINC 15GM TUBE TOP ONE; +BISA-81 PO; +BUPIVACAINE HCL/PF 0.5% (5MG/ML) 10ML ONE; +CEFAZOLIN SODIUM 1000MG/VIAL ONE; -CHOL100022 PO; +CHOL100044 PO; +CLON0.1T14 TD; +DEXL60CA3 PO; +DIAZ1KIT RC; +DOCU-138 PO; -DOCU250C69 PO; -FENO135C4 PO; +FENO145T19 PO; +FERR142T6 PO; -FERR325T23 PO; -FOLI-43 PO; +GELATIN SPONGE,ABSORBABLE SZ 100 ONE; +GUAI600T44 PO; +HEPARIN SODIUM 1,000 UNIT/1ML VIAL IV ONE; +HYDROCODONE/ACETAMINOPHEN 5/325MG TABLET PO PRN; +HYDROCORTISONE SOD SUCCINATE 100 MG/2 ML VIAL ONE; +INSLIS SUBCUT; +LACT1CAP70 PO; -LANTANOPROST EACHEYE; +LIDOCAINE HCL 1% 20ML VIAL (Pyxis) INJ ONE; +LIDOCAINE HCL/PF 1% 10 MG/ML 5ML VIAL ONE; -LYR25 PO; +MINO2.5T2 PO; +MOM PO; +NA P230E RC; +NEPVIT PO; +NITR1PAT9 TD; +OLME1TAB30 PO; +ONDANSETRON HCL 4MG/2ML VIAL ONE; +PHEN100C4 PO; -PHEN300C2 PO; +PREG50CA PO; +PROP10DR2 EACHEYE; +PROPOFOL 200MG/20ML VIAL IV ONE; +SKIN ADHESIVE 0.7 GM EA TOP ONE; +SODIUM CHLORIDE 0.9% 500 ML IV ONE; +THROMBIN (BOVINE) 5000 UNITS/VIAL TOP ONE; +TUSSL PO; -VIC PO; -WHEA98PO PO; +XALAO EACHEYE
[2017-06-11 11:44] LABS: HEMATOCRIT. 27.7 % (36.0-48.0); HEMOGLOBIN. 9.5 g/dL (12.0-16.0); MEAN CORPUSCULAR HEMOGLOBIN 28.3 pg (28.0-32.0); MEAN CORPUSCULAR VOLUME 82.6 fL (81.0-99.0); MEAN PLATELET VOLUME 9.1 fl (7.4-10.4); PLATELET 254 x1000/uL (130-400); RED BLOOD CELL COUNT 3.35 mill/uL (4.2-5.4); RED CELL DISTRIBUTION WIDTH 14.5 % (11.6-14.6)
[2017-06-11 11:52] LABS: INR 1.1; PARTIAL THROMBOPLASTIN TIME 25.9 sec (23.4-31.0)
[2017-06-11 12:25] LABS: PLATELET ESTIMATE NORMAL
== END | disposition home or self-care (01) ==
LOC: OR 10:48
PROVIDERS: ATTEND Surgery Vascular Surgery
DX: I12.0 Hypertensive chronic kidney disease with stage 5 chronic kidney disease or end stage renal disease (principal); N18.6 End stage renal disease; I51.7 Cardiomegaly; E11.22 Type 2 diabetes mellitus with diabetic chronic kidney disease; Z99.2 Dependence on renal dialysis; Z88.2 Allergy status to sulfonamides; Z98.890 Other specified postprocedural states; Z90.710 Acquired absence of both cervix and uterus
CPT/HCPCS: 36415; 36830; 80048; 82962; 85025; 85610; 85730; 93005; C1768; G0168; J0690; J1644; J1720; J2405; J3490; J2704